=== PATIENT | female | born 1965 | race Caucasian/White ===

== ENCOUNTER 2016-11-18 11:38 | Emergency (ER) | payer BC, OTHER ==
[~2016-11-18] VITALS: Ht 162.6 cm; Wt 64.9 kg
--- OUTSIDE RECORDS SUMMARY | 2016-11-18 11:45 | XMS REPORT | Continuity of Care Document ---
Author Author Formerly [facility] Address Unknown Phone Unavailable Allergies Medications Problems Date Dx Coded Attending Type Code Diagnosis Diagnosed By 09/14/2011 JESSIE SILVA DO 382.00 OTITIS MEDIA ACUTE SUPPURATIVE 09/14/2011 JESSIE SILVA DO 388.70 EAR ACHE 09/14/2011 JESSIE SILVA DO 465.9 UPPER RESPIRATORY INFECTION 09/14/2011 JESSIE SILVA DO 478.19 OTHER DISEASES OF NASAL CAVITY AND SINUSES 09/17/2013 JESSIE SILVA DO 461.9 SINUSITIS ACUTE Procedures Results Encounters ACCT No. Visit Date/Time Discharge Status Pt. Type Provider Facility Loc./Unit Complaint [id number] 09/17/2013 16:47:00 09/17/2013 23: 59:59 CLS Outpatient JESSIE SILVA DO
[2016-11-18] MEDS ORDERED: NS IV 1000 ML 1,000 ML IV ONE (12:07)
[2016-11-18 12:14] LABS: BASOPHILS % (AUTO) 0 % (0-10); EOSINOPHILS % (AUTO) 0 % (0-10); LYMPHOCYTES # (AUTO) 8.7 X 10^3 (1.0-4.0); LYMPHOCYTES % (AUTO) 32 % (12-44); MEAN CORPUSCULAR HEMOGLOBIN 27 PG (25-34); MEAN CORPUSCULAR HGB CONC 34 G/DL (32-36); MEAN CORPUSCULAR VOLUME 79 FL (80-99); MEAN PLATELET VOLUME 10.1 FL (7.4-10.4); MONOCYTES # (AUTO) 1.8 X 10^3 (0.0-1.0); MONOCYTES % (AUTO) 7 % (0-12); NEUTROPHILS # (AUTO) 16.9 X 10^3 (1.8-7.8); NEUTROPHILS % (AUTO) 62 % (42-75); PLATELET COUNT 349 10^3/uL (130-400); RED BLOOD COUNT 6.31 10^6/uL (4.35-5.85); RED CELL DISTRIBUTION WIDTH 14.1 % (10.0-14.5); WHITE BLOOD COUNT 27.4 10^3/uL (4.3-11.0)
[2016-11-18] MEDS ORDERED: PROMETHAZINE INJ 25 MG/ML (PHENERGAN) AMP ONE (12:31)
[2016-11-18] MEDS ORDERED: PROMETHAZINE INJ 25 MG/ML (PHENERGAN) AMP IVP STA (12:32)
[2016-11-18 12:35] LABS: ALANINE AMINOTRANSFERASE 13 U/L (0-55); ALBUMIN 4.7 G/DL (3.2-4.5); ANION GAP 16 MMOL/L (5-14); ASPARTATE AMINO TRANSFERASE 18 U/L (5-34); BLOOD UREA NITROGEN 17 MG/DL (7-18); BUN/CREATININE RATIO 23; CALCIUM 9.9 MG/DL (8.5-10.1); CARBON DIOXIDE 24 MMOL/L (21-32); CHLORIDE 94 MMOL/L (98-107); CREATININE SERUM 0.75 MG/DL (0.60-1.30); GFR ESTIMATED > 60; GLUCOSE 117 MG/DL (70-105); POTASSIUM 3.6 MMOL/L (3.6-5.0); SODIUM 134 MMOL/L (135-145)
[2016-11-18 12:41] LABS: EOSINOPHILS % (MANUAL) 1 %; LYMPHOCYTES % (MANUAL) 8 %; NEUTROPHILS % (MANUAL) 70 %; REACTIVE LYMPHOCYTES 17 %
--- NOTE | 2016-11-18 12:54 | ED GI ---
General Chief Complaint: Abdominal/GI Problems Stated Complaint: VOMITING/NAUSEA Nursing Triage Note: pt reports nausea/vomiting since tuesday. states she was seen at the [facility] yesterday and given zofran and tested for the flu which was negative. pt reports zofran did not help and she had phenergan called in. Sepsis Screen: No Definite Risk History of Present Illness Time Seen By Provider: 12:25 Initial Comments Patient reports vomiting since 11/14/16. She vomited multiple times on the first day then had resolution of symptoms on 11/15/16. She has vomited 2-3 times a day for the last 2 days. Was evaluated at the [facility] in [place] yesterday and started on Zofran sublingual, he did not notice improvement with that. She started on Phenergan 25 mg by mouth last evening with some improvement in her vomiting. She did had diarrhea yesterday evening. She denies any previous trauma to her abdomen or surgeries. Timing/Duration: 3-4 Days Severity/Quality: Moderate Location: RLQ, LLQ, Epigastric Radiation: No Radiation Activities at Onset: None Modifying Factors: Improves With Resting, Improves With Vomiting Associated Symptoms: Denies Symptoms Allergies and Home Medications Allergies Coded Allergies: No Known Drug Allergies (Unverified , 11/18/16) Review of Systems Constitutional: no symptoms reported see HPI EENTM: No Symptoms Reported See HPI Respiratory: No Symptoms Reported See HPI Cardiovascular: No Symptoms Reported See HPI Gastrointestinal: See HPI Abdominal Pain (generalized, most significantly at epigastric) Diarrhea Nausea Poor Appetite Poor Fluid Intake Vomiting Genitourinary: No Symptoms Reported See HPI Musculoskeletal: no symptoms reported see HPI Skin: no symptoms reported see HPI Psychiatric/Neurological: No Symptoms Reported See HPI Endocrine: No Symptoms Reported See HPI Hematologic/Lymphatic: No Symptoms Reported See HPI All Other Systems Reviewed Negative Unless Noted: Yes Past Lszuthj-Dubkfu-Nmnpuc Hx Patient Social History Alcohol Use: Rarely Uses Recreational Drug Use: No Smoking Status: Current Everyday Smoker Type Used: Cigarettes Recent Foreign Travel: No Contact w/Someone Who Travel: No Recent Infectious Disease Expo: No Recent Hopitalizations: No Surgeries HX Surgeries: Yes (l elbow) Surgeries: Orthopedic Respiratory Hx Respiratory Disorders: No Cardiovascular Hx Cardiac Disorders: No Neurological Hx Neurological Disorders: No Reproductive System Hx Reproductive Disorders: No Genitourinary Hx Genitourinary Disorders: No Gastrointestinal Hx Gastrointestinal Disorders: No Musculoskeletal Hx Musculoskeletal Disorders: No Endocrine Hx Endocrine Disorders: No HEENT HX ENT Disorders: No Cancer Hx Cancer: No Psychosocial Hx Psychiatric Problems: No Integumentary HX Skin/Integumentary Disorder: No Blood Transfusions Hx Blood Disorders: No Reviewed Nursing Assessment Reviewed/Agree w Nursing PMH: Yes Physical Exam Vital Signs VS - Last 72 Hours, by Label 11/18/16 11/18/16 12:05 15:05 Temp 97.8 Pulse 57 70 Resp 18 20 B/P 142/95 Pulse Ox 100 98 Capillary Refill : Less Than 3 Seconds General Appearance: WD/WN no apparent distress HEENT: PERRL/EOMI normal ENT inspection TMs normal pharynx normal other (oral mucosa pink and moist) Neck: non-tender full range of motion supple normal inspection Respiratory: chest non-tender lungs clear normal breath sounds Cardiovascular: normal peripheral pulses regular rate, rhythm no edema no murmur Gastrointestinal: normal bowel sounds soft no organomegalyNo guarding, No rebound, tenderness (epigastric)No hernia, No hepatomegaly, No spleenomegaly Extremities: normal range of motion non-tender normal inspection no pedal edema no calf tenderness Back: normal inspection no CVA tenderness no vertebral tenderness Neurologic/Psychiatric: alert normal mood/affect oriented x 3 Skin: normal color warm/dry other (skin turgor less than 3 seconds) Lymphatic: no adenopathy Focused Exam Lactic Acid Level Laboratory Tests Test 11/18/16 12:02 Alanine Aminotransferase (ALT/SGPT) 13U/L (0-55) Albumin 4.7G/DL (3.2-4.5) H Alkaline Phosphatase 112U/L (40-136) Amylase Level 28U/L (25-125) Anion Gap 16MMOL/L (5-14) H Aspartate Amino Transf (AST/SGOT) 18U/L (5-34) BUN/Creatinine Ratio 23 Blood Urea Nitrogen 17MG/DL (7-18) C-Reactive Protein High Sensitivity 0.87MG/DL (0.00-0.50) H Calcium Level 9.9MG/DL (8.5-10.1) Carbon Dioxide Level 24MMOL/L (21-32) Chloride Level 94MMOL/L (98-107) L Creatinine 0.75MG/DL (0.60-1.30) Estimat Glomerular Filtration Rate > 60 Glucose Level 117MG/DL (70-105) H Lipase 18U/L (8-78) Potassium Level 3.6MMOL/L (3.6-5.0) Sodium Level 134MMOL/L (135-145) L Total Bilirubin 1.0MG/DL (0.1-1.0) Total Protein 8.0G/DL (6.4-8.2) Progress/Results/Core Measures Results/Orders Lab Results Laboratory Tests Test 11/18/16 12:02 11/18/16 13:48 Range/Units Alanine Aminotransferase (ALT/SGPT) 13 0-55 U/L Albumin 4.7 H 3.2-4.5 G/DL Alkaline Phosphatase 112 40-136 U/L Amylase Level 28 25-125 U/L Anion Gap 16 H 5-14 MMOL/L Aspartate Amino Transf (AST/SGOT) 18 5-34 U/L BUN/Creatinine Ratio 23 Basophils # (Auto) 0.0 0.0-0.1 10^3/uL Basophils (%) (Auto) 0 0-10 % Blood Morphology Comment NORMAL Blood Urea Nitrogen 17 7-18 MG/DL C-Reactive Protein High Sensitivity 0.87 H 0.00-0.50 MG/DL Calcium Level 9.9 8.5-10.1 MG/DL Carbon Dioxide Level 24 21-32 MMOL/L Chloride Level 94 L 98-107 MMOL/L Creatinine 0.75 0.60-1.30 MG/DL Eosinophils # (Auto) 0.0 0.0-0.3 10^3/uL Eosinophils % (Manual) 1 % Eosinophils (%) (Auto) 0 0-10 % Estimat Glomerular Filtration Rate > 60 Glucose Level 117 H 70-105 MG/DL Hematocrit 50 35-52 % Hemoglobin 17.1 H 11.5-16.0 G/DL Lipase 18 8-78 U/L Lymphocytes # (Auto) 8.7 H 1.0-4.0 X 10^3 Lymphocytes % (Manual) 8 % Lymphocytes (%) (Auto) 32 12-44 % Mean Corpuscular Hemoglobin 27 25-34 PG Mean Corpuscular Hemoglobin Concent 34 32-36 G/DL Mean Corpuscular Volume 79 L 80-99 FL Mean Platelet Volume 10.1 7.4-10.4 FL Monocytes # (Auto) 1.8 H 0.0-1.0 X 10^3 Monocytes % (Manual) 4 % Monocytes (%) (Auto) 7 0-12 % Neutrophils # (Auto) 16.9 H 1.8-7.8 X 10^3 Neutrophils % (Manual) 70 % Neutrophils (%) (Auto) 62 42-75 % Platelet Count 349 130-400 10^3/uL Potassium Level 3.6 3.6-5.0 MMOL/L Reactive Lymphocytes 17 % Red Blood Count 6.31 H 4.35-5.85 10^6/uL Red Cell Distribution Width 14.1 10.0-14.5 % Smudge Cells MOD Sodium Level 134 L 135-145 MMOL/L Total Bilirubin 1.0 0.1-1.0 MG/DL Total Protein 8.0 6.4-8.2 G/DL White Blood Count 27.4 H 4.3-11.0 10^3/uL Urine Bacteria NEGATIVE /HPF Urine Bilirubin NEGATIVE NEGATIVE Urine Casts NONE /LPF Urine Clarity CLEAR Urine Color YELLOW Urine Crystals NONE /LPF Urine Culture Indicated NO Urine Glucose (UA) NEGATIVE NEGATIVE Urine Ketones 2+ H NEGATIVE Urine Leukocyte Esterase 1+ H NEGATIVE Urine Mucus NEGATIVE /LPF Urine Nitrite NEGATIVE NEGATIVE Urine Protein 2+ H NEGATIVE Urine RBC NONE /HPF Urine RBC (Auto) NEGATIVE NEGATIVE Urine Specific Rotan 1.010 L 1.016-1.022 Urine Squamous Epithelial Cells 0-2 /HPF Urine Urobilinogen 1 NORMAL MG/DL Urine WBC 0-2 /HPF Urine pH 8 5-9 My Orders Orders-LETY GARCÍA [employer] Saline Lock/Iv-Start (11/18/16 12:07) Ns Iv 1000 Ml (Sodium Chloride 0.9%) (11/18/16 12:07) Cbc With Automated Diff (11/18/16 12:07) Comprehensive Metabolic Panel (11/18/16 12:07) Ua Culture If Indicated (11/18/16 12:07) Manual Differential (11/18/16 12:02) Promethazine Injection (Phenergan Injec (11/18/16 12:32) Promethazine Injection (Phenergan Injec (11/18/16 12:31) Ct Abd/Pelv W (Appendicitis) (11/18/16 12:45) Iohexol Injection (Omnipaque 350 Mg/Ml 1 (11/18/16 13:00) Ns (Ivpb) (Sodium Chloride 0.9% Ivpb Bag (11/18/16 13:00) Clear Liquid (11/18/16 Lunch) Amylase (11/18/16 14:50) Hs C Reactive Protein (11/18/16 14:50) Lipase (11/18/16 14:50) Medications Given in ED Current Medications Medications Dose Ordered Sig/Brianna Route Start Time Stop Time Status Last Admin Dose Admin Iohexol 100 ml ONCE ONCE IV 11/18/16 13:00 11/18/16 13:01 DC 11/18/16 13:07 100 ML Sodium Chloride 100 ml ONCE ONCE IV 11/18/16 13:00 11/18/16 13:01 DC 11/18/16 13:07 80 ML Sodium Chloride 1,000 ml @ 0 mls/hr Q0M ONCE IV 11/18/16 12:07 11/18/16 12:09 DC 11/18/16 12:20 0 MLS/HR Vital Signs/I&O Vital Sign - Last 12Hours 11/18/16 11/18/16 12:05 15:05 Temp 97.8 Pulse 57 70 Resp 18 20 B/P 142/95 Pulse Ox 100 98 Blood Pressure Mean: 111 Progress Note : Time: 12:25 Progress Note Initial evaluation completed, will start normal saline 1 L IV and labs ordered. 1240 labs show WBC 27.4, RBC 6.31, hemoglobin 17.1, hematocrit 50, neutrophils 16.9, lymphs 8.7, mono 1.8. Sodium 134, potassium 3.6, chloride 94, BUN 17, creatinine 0.75, estimated GFR greater than 60, gross 117, AST 18, ALT 13. Normal saline infusing, patient complaining of nausea, Phenergan 25 mg IV. His Lab results with patient with the elevated CBC, recommended CT abdomen and pelvis. Patient unable to provide a UA at this time. [address] findings of abdomen and pelvis with the patient and her spouse. Reports to be feeling much better with no nausea or vomiting. IV normal saline has infused. She would like to try by mouth fluids start with clear liquids. 1410 agent taking by mouth fluids with no nausea or vomiting. Lab results were reviewed with Dr. Morales, CRP, amylase and lipase ordered. CRP 0.87; amylase 28; lipase 18. 1420 discussed results of lab with patient in detail & emphasized the importance to have a CBC drawn in one week. She will follow up with Francis Gan APRN. Discussed that the vomiting could cause the elevation of the WBC but I would like to have him follow-up in one week to verify that it is returning to normal. A copy of her CBC was given to her. Diagnostic Imaging Diagonstic Imaging: CT Comments NAME: ARMIDA OSUNA [facility] REC#: [id number] PT STATUS: REG ER : 1965 PHYSICIAN: LETY GARCÍA ADMIT DATE: 11/18/16/ER Draft Date of Exam:11/18/16 CT ABD/PELV W (APPENDICITIS) PROCEDURE: CT abdomen and pelvis with contrast, rule out appendicitis. TECHNIQUE: Multiple contiguous axial images were obtained through the abdomen and pelvis after the administration of intravenous contrast. INDICATION: Abdominal pain. COMPARISON: None. FINDINGS: The lung bases are clear. Benign-appearing focal fat infiltration in the liver along the falciform ligament. Colonic diverticulosis without evidence of active diverticulitis. Minimal arterial calcifications including a normal-caliber aorta. The gallbladder, pancreas, spleen, adrenals, kidneys, collecting systems, bladder, and appendix are negative. No free intraperitoneal air/fluid. No lymphadenopathy. No evidence of bowel obstruction or inflammation. Minimal degenerative changes in the visualized spine. IMPRESSION: No acute CT findings in the abdomen or pelvis. Dictated on workstation # [id number] Dict: 11/18/16 1322 Trans: 11/18/16 1332 [id number] [id number] Interpreted by: NAKUL MCKENZIE MD Electronically signed by: Reviewed: Reviewed by Me Departure Impression Impression: Primary Impression: Nausea and vomiting Qualified Code: R11.14 - Bilious vomiting Disposition: 01 HOME, SELF-CARE Condition: Improved Departure-Patient Inst. Decision time for Depature: 13:30 Referrals: [facility] [place] [place] (PCP/Family) Primary Care Physician Patient Instructions: Nausea and Vomiting, Adult (DC) Add. Discharge Instructions: All discharge instructions reviewed with patient and/or family. Voiced understanding. Return to ER for increased abdominal pain, uncontrolled vomiting, or new problems. Important to have a lab draw in 1 week to reassess the CBC. Establish care with a primary care provider. There liquids for the next 4 hours then progress to a bland diet. LETY GARCÍA Nov 18, 2016 12:54
[2016-11-18] MEDS ORDERED: IOHEXOL 350 MG/ML 100 ML (OMNIPAQUE 350) VIAL IV ONE (13:00)
[2016-11-18] MEDS ORDERED: NS 100 ML (IVPB) BAG IV ONE (13:00)
--- NOTE | 2016-11-18 13:32 | Diagnostic Imaging Report ---
PROCEDURE: CT abdomen and pelvis with contrast, rule out appendicitis. TECHNIQUE: Multiple contiguous axial images were obtained through the abdomen and pelvis after the administration of intravenous contrast. INDICATION: Abdominal pain. COMPARISON: None. FINDINGS: The lung bases are clear. Benign-appearing focal fat infiltration in the liver along the falciform ligament. Colonic diverticulosis without evidence of active diverticulitis. Minimal arterial calcifications including a normal-caliber aorta. The gallbladder, pancreas, spleen, adrenals, kidneys, collecting systems, bladder, and appendix are negative. No free intraperitoneal air/fluid. No lymphadenopathy. No evidence of bowel obstruction or inflammation. Minimal degenerative changes in the visualized spine. IMPRESSION: No acute CT findings in the abdomen or pelvis. Dictated by: Dictated on workstation # [id number]
[2016-11-18 13:57] LABS: BILIRUBIN,URINE NEGATIVE (NEGATIVE); KETONES,URINE 2+ (NEGATIVE); LEUKOCYTE ESTERASE ,URINE 1+ (NEGATIVE); NITRITE,URINE NEGATIVE (NEGATIVE); PH,URINE 8 (5-9); PROTEIN,URINE 2+ (NEGATIVE); UROBILINOGEN,URINE 1 MG/DL (NORMAL)
[2016-11-18 14:06] LABS: SQUAMOUS EPITHELIAL CELL,UR 0-2 /HPF; WBC,URINE 0-2 /HPF
[2016-11-18 15:05] VITALS: BP 126/88
[2016-11-18 15:06] LABS: hs C REACTIVE PROTEIN 0.87 MG/DL (0.00-0.50)
== END 2016-11-18 15:05 | disposition home or self-care (01) ==
LOC: ER 11:42
DX: R11.2 Nausea with vomiting, unspecified (principal); F17.210 Nicotine dependence, cigarettes, uncomplicated
CPT/HCPCS: 36415; 74177; 80053; 81000; 82150; 83690; 85007; 85027; 86141; 96361; 96365